=== PATIENT | female | born 1990 | race Caucasian/White ===

== ENCOUNTER 2018-07-20 22:03 | Outpatient (CLI) | payer OTHER ==
[2018-07-20 22:43] LABS: ADD UMIC YES; UR ASCORBIC ACID 20 mg/dL (NEGATIVE); UR BACTERIA FEW /HPF (NONE SEEN); UR BILIRUBIN (Dip) NEGATIVE (NEGATIVE); UR BLOOD (Dip) NEGATIVE (NEGATIVE); UR CLARITY CLEAR (CLEAR); UR COLOR YELLOW (YELLOW); UR GLUCOSE (Dip) NEGATIVE (NEGATIVE); UR KETONES (Dip) NEGATIVE (NEGATIVE); UR LEUKOCYTE ESTERASE (Dip) 1+ Leu/ul (NEGATIVE); UR NITRITE (Dip) NEGATIVE (NEGATIVE); UR RBC 0 /HPF (0-5); UR SPECIFIC GRAVITY (Dip) 1.025 (1.003-1.030); UR SQUAMOUS EPITHELIAL CELL FEW /HPF (FEW); UR TOTAL PROTEIN (Dip) NEGATIVE (NEGATIVE); UR UROBILINOGEN (Dip) NEGATIVE (NEGATIVE); UR WBC 1 /HPF (0-5)
== END 2018-07-20 23:23 | disposition home or self-care (01) ==
LOC: OBT 22:03 → L-D 22:05 → OBT 23:23
DX: O26.892 Other specified pregnancy related conditions, second trimester (principal); Z3A.24 24 weeks gestation of pregnancy; R10.2 Pelvic and perineal pain
CPT/HCPCS: 76817; 81001

== ENCOUNTER 2018-10-19 22:51 | Outpatient (CLI) | payer OTHER ==
[2018-10-19 23:46] LABS: ADD UMIC YES; UR ASCORBIC ACID 20 mg/dL (NEGATIVE); UR BACTERIA FEW /HPF (NONE SEEN); UR BILIRUBIN (Dip) NEGATIVE (NEGATIVE); UR BLOOD (Dip) NEGATIVE (NEGATIVE); UR CLARITY SLIGHTLY CLOUDY (CLEAR); UR COLOR YELLOW (YELLOW); UR GLUCOSE (Dip) 1+ mg/dL (NEGATIVE); UR KETONES (Dip) TRACE mg/dL (NEGATIVE); UR LEUKOCYTE ESTERASE (Dip) TRACE Leu/ul (NEGATIVE); UR MUCUS MANY /HPF (NONE SEEN); UR NITRITE (Dip) NEGATIVE (NEGATIVE); UR RBC 4 /HPF (0-5); UR SPECIFIC GRAVITY (Dip) 1.035 (1.003-1.030); UR SQUAMOUS EPITHELIAL CELL MODERATE /HPF (FEW); UR TOTAL PROTEIN (Dip) 1+ mg/dl (NEGATIVE); UR UROBILINOGEN (Dip) 1+ mg/dL (NEGATIVE); UR WBC 14 /HPF (0-5)
== END 2018-10-20 00:15 | disposition home or self-care (01) ==
LOC: OBT 22:51 → L-D 22:52
DX: O26.893 Other specified pregnancy related conditions, third trimester (principal); R10.2 Pelvic and perineal pain; Z3A.37 37 weeks gestation of pregnancy
CPT/HCPCS: 76815; 81001; 87086

== ENCOUNTER 2018-10-24 20:08 | Outpatient (CLI) | payer OTHER | END 2018-10-24 22:26 | disposition home or self-care (01) | LOC: OBT 20:08 → L-D 20:09 → OBT 22:26 | DX: O62.9 Abnormality of forces of labor, unspecified (principal); Z3A.39 39 weeks gestation of pregnancy | CPT/HCPCS: 76818 ==

== ENCOUNTER 2018-10-26 00:44 | Inpatient (IN) | payer OTHER ==
[2018-10-26] MEDS: LACTATED RINGER'S 1,000 ML IV ×2 (01:55→05:07)
[2018-10-26] MEDS ORDERED: MISOPROSTOL 200 MCG TAB PR ×2 (02:00→10:30)
[2018-10-26] MEDS ORDERED: OXYCODONE/ASPIRIN (4.88/325) TAB PO ×2 (02:00→10:30)
[2018-10-26] MEDS ORDERED: OXYTOCIN 30 UNITS/LR 500 ML IV ×2 (02:00→10:30)
[2018-10-26] MEDS ORDERED: CARBOPROST 250 MCG INJ IM ×2 (02:00→10:30)
[2018-10-26] MEDS ORDERED: IBUPROFEN 600 MG TAB PO (02:00)
[2018-10-26] MEDS ORDERED: METHYLERGONOVINE 0.2 MG INJ IM ×2 (02:00→10:30)
[2018-10-26] MEDS ORDERED: BUTORPHANOL 2 MG INJ IV (02:00)
[2018-10-26] MEDS ORDERED: LIDOCAINE 1% (MPF) 30 ML INJ INJ (02:00)
[2018-10-26] MEDS: AMPICILLIN 2 GM/NS (PMX) 100 ML IV (02:31)
[2018-10-26 02:35] LABS: ADD MAN DIFF? NO
[2018-10-26] MEDS ORDERED: FENTAnyl 2MCG/ML-ROPIV 0.2% 100 ML (02:40)
[2018-10-26 02:41] LABS: BASOPHILS % 0.4 % (0.0-2.0); EOSINOPHILS # 0.3 10^3/ul (0.0-0.5); EOSINOPHILS % 2.6 % (0.0-7.0); HEMATOCRIT 38.8 % (37.0-47.0); HEMOGLOBIN 13.1 g/dl (12.0-16.0); LYMPHOCYTES # 2.4 10^3/ul (0.8-2.9); MEAN CORPUSCULAR HEMOGLOBIN 32.3 pg (29.0-33.0); MEAN CORPUSCULAR HGB CONC 33.8 g/dl (32.0-37.0); MEAN CORPUSCULAR VOLUME 95.6 fl (82.0-101.0); MEAN PLATELET VOLUME 11.2 fl (7.4-10.4); MONOCYTE # 0.9 10^3/ul (0.3-0.9); MONOCYTES % 7.9 % (0.0-11.0); NEUTROPHIL # 7.2 10^3/ul (1.6-7.5); NEUTROPHILS % 66.1 % (39.0-77.0); PLATELET COUNT 222 10^3/UL (140-415); RED BLOOD COUNT 4.06 10^6/ul (4.20-5.40); RED CELL DISTRIBUTION WIDTH 13.5 % (11.5-14.5)
[2018-10-26 02:41] LABS: WHITE BLOOD COUNT 10.9 10^3/ul (4.8-10.8)
[2018-10-26 02:57] LABS: INR 0.85; PROTIME 11.7 Sec (11.9-14.9); PT RATIO 0.9
[2018-10-26 02:58] LABS: PARTIAL THROMBOPLASTIN TIME 27.9 Sec (23.0-35.0)
[2018-10-26] MEDS ORDERED: FENTAnyl 2MCG/ML-ROPIV 0.2% 100 ML BAG EPI (03:00)
[2018-10-26] MEDS ORDERED: NALOXONE (0.4 MG/ML) INJ IV (03:00)
[2018-10-26 04:12] LABS: HEPATITIS B SURFACE ANTIGEN NEGATIVE (NEGATIVE)
[2018-10-26] MEDS: AMPICILLIN 1 GM/NS (PMX) 50 ML IV (06:25)
[2018-10-26] MEDS: OXYTOCIN 30 UNITS/LR 500 ML IV ×2 (07:14→07:42)
[2018-10-26] MEDS ORDERED: ZOLPIDEM 5 MG TAB PO (10:30)
[2018-10-26] MEDS: IBUPROFEN 600 MG TAB PO ×2 (12:00→17:40)
[2018-10-26] MEDS: OXYCODONE/ASPIRIN (4.88/325) TAB PO (14:34)
[2018-10-26] MEDS: LANOLIN HPA 1 PKT TOP (14:34)
[2018-10-26] MEDS: WITCH HAZEL/GLYCERIN PAD PR (14:34)
[2018-10-26] MEDS: BENZOCAINE 20% 56 ML SPRAY TOP (14:34)
[2018-10-26 15:53] LABS: RAPID PLASMA REAGIN NONREACTIVE (NR)
[2018-10-26] MEDS: SENNA/DOCUSATE NA (8.6MG/50MG) TAB PO (22:18)
[2018-10-27] MEDS: IBUPROFEN 600 MG TAB PO ×4 (00:43→17:32)
[2018-10-27] MEDS: SENNA/DOCUSATE NA (8.6MG/50MG) TAB PO ×2 (08:43→21:31)
[2018-10-27 09:30] LABS: ADD MAN DIFF? NO
[2018-10-27 09:54] LABS: BASOPHIL # 0.1 10^3/ul (0.0-0.1); BASOPHILS % 0.5 % (0.0-2.0); EOSINOPHILS # 0.4 10^3/ul (0.0-0.5); EOSINOPHILS % 3.2 % (0.0-7.0); HEMATOCRIT 36.8 % (37.0-47.0); HEMOGLOBIN 12.2 g/dl (12.0-16.0); LYMPHOCYTES # 2.3 10^3/ul (0.8-2.9); LYMPHOCYTES % 19.1 % (15.0-51.0); MEAN CORPUSCULAR HEMOGLOBIN 32.3 pg (29.0-33.0); MEAN CORPUSCULAR HGB CONC 33.2 g/dl (32.0-37.0); MEAN CORPUSCULAR VOLUME 97.4 fl (82.0-101.0); MEAN PLATELET VOLUME 10.9 fl (7.4-10.4); MONOCYTE # 0.7 10^3/ul (0.3-0.9); NEUTROPHIL # 8.4 10^3/ul (1.6-7.5); NEUTROPHILS % 70.4 % (39.0-77.0); PLATELET COUNT 188 10^3/UL (140-415); RED BLOOD COUNT 3.78 10^6/ul (4.20-5.40); RED CELL DISTRIBUTION WIDTH 13.8 % (11.5-14.5)
[2018-10-27 10:06] LABS: RUBELLA ANTIBODY - IGG 1.17 index
[2018-10-27] MEDS: LANOLIN HPA 1 PKT TOP (15:37)
[2018-10-28] MEDS: OXYCODONE/ASPIRIN (4.88/325) TAB PO (02:46)
[2018-10-28] MEDS: IBUPROFEN 600 MG TAB PO ×4 (06:00→16:14)
[2018-10-28] MEDS: DIPHTH/TET/ACEL PERTUSS (ADULT) 0.5 ML VIAL IM* (07:56)
[2018-10-28] MEDS: SENNA/DOCUSATE NA (8.6MG/50MG) TAB PO (09:24)
[2018-11-01 09:06] LABS: RUBELLA ANTIBODY - IGM <20.00 AU/mL
== END 2018-10-28 19:03 | disposition home or self-care (01) | DRG 807 ==
LOC: OBT 00:44 → L-D 00:44 → OBT 01:32 → L-D 01:32 → PP1 13:16
PROVIDERS: Obstetrics & Gynecology
PROC: 10E0XZZ Delivery of Products of Conception, External Approach (ICD-10-PCS; principal; 2018-10-26)
DX: O80 Encounter for full-term uncomplicated delivery (principal); Z37.0 Single live birth; Z3A.38 38 weeks gestation of pregnancy
CPT/HCPCS: 62319; 85025; 85610; 85730; 86592; 86762; 86850; 86900; 86901; 87340